=== PATIENT | female | born 1940 | race Caucasian/White ===

== ENCOUNTER 2018-11-06 14:29 | Emergency (ER) | payer MEDICARE, BC ==
[~2018-11-06] VITALS: Ht 157.5 cm; Wt 59.9 kg
[2018-11-06] MEDS ORDERED: LIDOCAINE 2% 20 ML VIAL. ONE (15:01)
[2018-11-06] MEDS ORDERED: LIDOCAINE 1% Multi-Dose 20 ML VIAL. ONE (15:01)
--- NOTE | 2018-11-06 15:11 | PHYS DOC ---
Past History Past Medical History: No Pertinent History Past Surgical History: Hysterectomy Smoking: Non-smoker Alcohol Use: Occasionally Drug Use: None Adult General Chief Complaint Chief Complaint: LACERATION/AVULSION HPI HPI Patient is a 78 year old female who presents with complaint of left ring finger laceration. Patient states that she had an accidental fall in a parking lot after she tripped over a concrete divider. She states she fell onto her knees, right hip, and injured her left ring finger during the fall. Patient states that she did not hit her head or lose consciousness. Has been ambulatory since the fall. This took place approximately 30 minutes prior to arrival. States that she has an avulsion laceration to the left ring finger that is still having oozing of blood. States she is able to move the finger without difficulty and make a fist. Is primarily concerned with her laceration at this time. Review of Systems Review of Systems Constitutional: Denies fever or chills [] Eyes: Denies change in visual acuity, redness, or eye pain [] HENT: Denies nasal congestion or sore throat [] Respiratory: Denies cough or shortness of breath [] Cardiovascular: Denies chest pain or edema[] GI: Denies abdominal pain, nausea, vomiting, bloody stools or diarrhea [] : Denies dysuria or hematuria [] Musculoskeletal: Right hip pain[] Integument: Skin laceration[] Neurologic: Denies headache, focal weakness or sensory changes [] All other systems were reviewed and found to be within normal limits, except as documented in this note. Current Medications Current Medications Current Medications Medications (Trade) Dose Ordered Sig/[facility] Start Time Stop Time Status Last Admin Dose Admin Lidocaine HCl 20 ml [employer] ONCE 11/06/18 15:01 11/06/18 15:02 DC Allergies Allergies Allergies Coded Allergies Type Severity Reaction Last Updated Verified No Known Drug Allergies 08/24/13 No Physical Exam Physical Exam Constitutional: Alert, afebrile, no acute distress. [] HENT: Normocephalic, atraumatic, bilateral external ears normal, oropharynx moist, no oral exudates, nose normal. [] Eyes: PERRLA, EOMI, conjunctiva normal, no discharge. [] Neck: Normal range of motion, no tenderness, supple, no stridor. [] Cardiovascular:Heart rate regular rhythm, no murmur [] Lungs & Thorax: Bilateral breath sounds clear to auscultation [] Abdomen: Bowel sounds normal, soft, no tenderness, no masses, no pulsatile masses. [] Skin: Warm, dry, 2-1/2 cm avulsion injury at the dorsal base of left ring finger , no rash. [] Back: No tenderness, no CVA tenderness. [] Extremities: Superficial abrasions to bilateral knees, normal range of motion, no swelling, right buttock tenderness, no iliac or greater trochanteric tenderness to palpation, no cyanosis, no clubbing, ROM intact, no edema. [] Neurologic: Alert and oriented X 3, normal motor function, normal sensory function, no focal deficits noted. [] Current Patient Data Vital Signs Vital Signs Date Time Temp Pulse Resp B/P (MAP) Pulse Ox O2 Delivery O2 Flow Rate FiO2 11/06/18 14:29 97.5 82 16 100 Room Air Lab Results Not performed EKG EKG Not performed[] Radiology/Procedures Radiology/Procedures Indication: Left ring finger laceration Procedure: The patient was placed in the appropriate position and anesthesia around the laceration was achieved with injection of lidocaine 1%. The area was then irrigated copiously with 500 milliliters of normal saline. The wound was explored with full range of motion. Fascia appeared to be violated, however exposed extensor tendon does not reveal any injury with range of motion. The proximal wound edge was revised, cutting away proximal a 1 cm of devitalized tissue flap. The laceration was closed using 4-0 Prolene simple interrupted sutures. The wound area was then dressed with Telfa. Total repaired wound length: 3 cm. Other Items: Total suture count: 7 The patient tolerated the procedure without difficulty. Complications: None.[] Course & Med Decision Making Course & Med Decision Making Pertinent Labs and Imaging studies reviewed. (See chart for details) Patient's left hand wound was repaired as outlined in procedure note. Knee abrasions were cleansed and treated with antibiotic ointment and bandage. Patient's tetanus immunization is up-to-date. Advised patient to follow-up in 10-12 days for removal of sutures from left hand wound. Recommended return to emergency department for any worsening symptoms. Patient was understanding and in agreement with treatment plan. Dragon Disclaimer Dragon Disclaimer This electronic medical record was generated, in whole or in part, using a voice recognition dictation system. Departure Departure: Impression: Primary Impression: Laceration of ring finger Additional Impressions: Abrasion of knee, bilateral Contusion, buttock Disposition: 01 HOME, SELF-CARE Condition: IMPROVED Referrals: PCP,UNKNOWN (PCP) Patient Instructions: Abrasions, Contusion, Laceration Care, Adult Additional Instructions: Follow-up and 10-12 days with your primary doctor or healthcare facility for removal of your stitches. Return to the emergency department for any worsening symptoms. Problem Qualifiers Primary Impression: Laceration of ring finger Encounter type: initial encounter Damage to nail status: without damage Foreign body presence: without foreign body Laterality: left Qualified Codes : S61.215A - Laceration without foreign body of left ring finger without damage to nail, initial encounter Additional Impressions: Contusion, buttock Encounter type: initial encounter Qualified Codes: S30.0XXA - Contusion of lower back and pelvis, initial encounter RASHEEDA BETH MD Nov 06, 2018 15:11
[2018-11-06] MEDS ORDERED: LIDOCAINE 1% Multi-Dose 20 ML VIAL. IJ ONE (15:30)
[2018-11-06 16:10] VITALS: BP 154/80
[2018-11-06] MEDS ORDERED: NEOMY/BACITR/POLYMYXIN OINT PACKET. TP ONE (16:20)
== END 2018-11-06 16:10 | disposition home or self-care (01) ==
LOC: ER 14:29
DX: S61.215A Laceration without foreign body of left ring finger without damage to nail, initial encounter (principal); S30.0XXA Contusion of lower back and pelvis, initial encounter; S80.212A Abrasion, left knee, initial encounter; S80.211A Abrasion, right knee, initial encounter; W01.0XXA Fall on same level from slipping, tripping and stumbling without subsequent striking against object, initial encounter; Y93.89 Activity, other specified; Y92.481 Parking lot as the place of occurrence of the external cause; Y99.8 Other external cause status
CPT/HCPCS: 12002; 99283

== ENCOUNTER 2018-11-17 14:24 | Emergency (ER) | payer MEDICARE, BC ==
[~2018-11-17] VITALS: Ht 157.5 cm; Wt 59.9 kg
[2018-11-17 14:31] VITALS: BP 141/80
--- NOTE | 2018-11-17 14:44 | PHYS DOC ---
Past History Past Medical History: No Pertinent History Past Surgical History: Hysterectomy Smoking: Non-smoker Alcohol Use: Occasionally Drug Use: None Adult General Chief Complaint Chief Complaint: SUTURE/STAPLE REMOVAL HPI HPI Patient is a 78-year-old female who presents 11 days post suture placement in her left ring finger. Patient had a mechanical trip and fall landing on her outstretched hand and the ring angled backwards cutting into her skin. Patient has had no issues since the sutures were placed. No new numbness, tingling, paresthesias, nor purulent drainage.[] Review of Systems Review of Systems Constitutional: Denies fever or chills [] Respiratory: Denies cough or shortness of breath [] Cardiovascular: No chest pain or palpitations[] [] : Denies dysuria or hematuria [] Musculoskeletal: See history of present illness[] Integument: Denies rash or skin lesions [] Neurologic: Denies headache, focal weakness or sensory changes [] [] All other systems were reviewed and found to be within normal limits, except as documented in this note. Allergies Allergies Allergies Coded Allergies Type Severity Reaction Last Updated Verified No Known Drug Allergies 08/24/13 No Physical Exam Physical Exam Constitutional: Well developed, well nourished, no acute distress, non-toxic appearance. [] HENT: Normocephalic, atraumatic, bilateral external ears normal, oropharynx moist, no oral exudates, nose normal. [] Eyes: PERRLA, EOMI, conjunctiva normal, no discharge. [] Neck: Normal range of motion, no tenderness, supple, no stridor. [] Cardiovascular:Heart rate regular rhythm, no murmur [] Lungs & Thorax: Bilateral breath sounds clear to auscultation [] Abdomen: Not examined[] Skin: Warm, dry, no erythema, no rash. Left index finger, dorsal surface, suture line is intact, no erythema, no drainage, well approximated. Patient is distally neurovascularly intact.[] Back: No tenderness, no CVA tenderness. [] Extremities: No tenderness, no cyanosis, no clubbing, ROM intact, no edema. [] Neurologic: Alert and oriented X 3, normal motor function, normal sensory function, no focal deficits noted. [] Psychologic: Affect normal, judgement normal, mood normal. [] EKG EKG [] Radiology/Procedures Radiology/Procedures [] Course & Med Decision Making Course & Med Decision Making Pertinent Labs and Imaging studies reviewed. (See chart for details) Medical decision making: There is no evidence of an infection or neurovascular compromise. No evidence of wound dehiscence ED course: Patient arrived, was placed in bed, and tolerated exam well. Sutures were removed without any complications. Patient was discharged in improved condition.[] Dragon Disclaimer Dragon Disclaimer This electronic medical record was generated, in whole or in part, using a voice recognition dictation system. Departure Departure: Impression: Primary Impression: Visit for suture removal Disposition: HOME, SELF-CARE Condition: IMPROVED Referrals: PCP,UNKNOWN (PCP) Patient Instructions: Suture Removal Additional Instructions: Keep the area clean and dry. Follow-up with your regular doctor in the next week. Return to the ER if worsening pain, bleeding, purulent drainage, or any other concerns. NAVDEEP OSHEA DO Nov 17, 2018 14:44
== END 2018-11-17 15:07 | disposition home or self-care (01) ==
LOC: ER 14:24
DX: S61.215D Laceration without foreign body of left ring finger without damage to nail, subsequent encounter (principal); W01.0XXD Fall on same level from slipping, tripping and stumbling without subsequent striking against object, subsequent encounter
CPT/HCPCS: 99281